=== PATIENT | female | born 1940 | race Caucasian/White ===

== ENCOUNTER 2024-05-10 16:42 | Emergency (ER) | payer MEDICARE ==
[~2024-05-10] VITALS: Ht 170.2 cm; Wt 68.0 kg
[2024-05-10 16:45] VITALS: TEMP 98; O2SAT 98
[2024-05-10] MEDS ORDERED: BACITRACIN ZINC OINT UDPKT TOP ONE (17:45)
[2024-05-10] MEDS ORDERED: LIDOCAINE HCL/EPINEPHRINE 1%-EPI 1:100,000 20ML VIAL INFIL ONE (17:45)
[2024-05-10] MEDS ORDERED: TETANUS, DIPHTHERIA, PERTUSSIS VAC/PF 0.5ML (>10YR OLD) IM ONE ×2 (17:45→21:00)
[2024-05-10] MEDS: LIDOCAINE HCL/EPINEPHRINE 1%-EPI 1:100,000 20ML VIAL INFIL NR (21:12)
[2024-05-10] MEDS ORDERED: AMOX1TAB16 MT (21:13)
[2024-05-10] MEDS: BACITRACIN ZINC OINT UDPKT TOP NR (23:00)
[2024-05-10] MEDS: TETANUS, DIPHTHERIA, PERTUSSIS VAC/PF 0.5ML (>10YR OLD) IM ONE (23:24)
[2024-05-11 01:38] VITALS: BP 93/63; PULSE 105; RESP 18; O2SAT 99
== END 2024-05-11 01:52 | disposition home or self-care (01) ==
LOC: ER 16:42
DX: S01.511A Laceration without foreign body of lip, initial encounter (principal); E11.9 Type 2 diabetes mellitus without complications; I10 Essential (primary) hypertension; I48.91 Unspecified atrial fibrillation; W18.30XA Fall on same level, unspecified, initial encounter; Y93.89 Activity, other specified; Y92.89 Other specified places as the place of occurrence of the external cause; Y99.8 Other external cause status
CPT/HCPCS: 99285; 70450; 70486; 90715; 12013; 90471; J3490